=== PATIENT | female | born 1985 | race Two or more races ===

== ENCOUNTER 2021-06-05 16:29 | Emergency (ER) | payer OTHER ==
[~2021-06-05] VITALS: Ht 170.2 cm; Wt 72.6 kg
[~2021-06-05 16:29] MED LIST: [UNRECOGNIZED DRUG - OTHER] PO
== END 2021-06-05 17:50 | disposition home or self-care (01) ==
LOC: ER 16:29
DX: T16.1XXA Foreign body in right ear, initial encounter (principal); X58.XXXA Exposure to other specified factors, initial encounter; Y92.89 Other specified places as the place of occurrence of the external cause